=== PATIENT | female | born 1990 | race Caucasian/White ===

== ENCOUNTER 2017-11-23 08:52 | Emergency (ER) | payer OTHER ==
--- NOTE | 2017-11-23 09:40 | UC ---
Complaint Female HPI - HPI Summary HPI Summary: unprotected sexual exposure 3 days ago-- - History Of Current Complaint Chief Complaint: UCSTDScreening Stated Complaint: PERSONAL Time Seen by Provider: 11/23/17 09:45 Hx Obtained From: Patient Hx Last Menstrual Period: 11/05/17 ?: No Onset/Duration: Sudden Onset, Lasting Days - 3 Timing: Constant Severity Currently: None Pain Intensity: 0 Aggravating Factor(s): Nothing Alleviating Factor(s): Nothing Associated Signs And Symptoms: Positive: Negative - Allergies/Home Medications Allergies/Adverse Reactions: Allergies Allergy/AdvReac Type Severity Reaction Status Date / Time No Known Allergies Allergy Verified 11/23/17 09:25 Home Medications: Home Medications Cholecalciferol TAB* [Vitamin D TAB*] 50,000 unit PO WEEKLY 11/23/17 [History Confirmed 11/23/17] LORazepam TAB(*) [Ativan 0.5 MG TAB (*)] 0.5 mg PO BID 11/23/17 [History Confirmed 11/23/17] Sertraline* [Zoloft*] 200 mg PO DAILY 11/23/17 [History Confirmed 11/23/17] Zolpidem TAB* [Ambien TAB*] 10 mg PO BEDTIME PRN 11/23/17 [History Confirmed 02/04] PMH/Surg Hx/FS Hx/Imm Hx Previously Healthy: Yes - Surgical History Surgical History: None - Family History Known Family History: Positive: None - Social History Occupation: Employed Full-time Lives: With Family Alcohol Use: Rare Substance Use Type: None Smoking Status (MU): Light Every Day Tobacco Smoker Type: Cigarettes Amount Used/How Often: 1/2ppd Review of Systems Constitutional: Negative Skin: Negative Eyes: Negative ENT: Negative Respiratory: Negative Cardiovascular: Negative Gastrointestinal: Negative Genitourinary: Negative Motor: Negative Neurovascular: Negative Musculoskeletal: Negative Neurological: Negative Psychological: Negative Is Patient Immunocompromised?: No All Other Systems Reviewed And Are Negative: Yes Physical Exam Triage Information Reviewed: Yes Appearance: Well-Appearing, No Pain Distress, Well-Nourished Vital Signs: Initial Vital Signs Temp 98 F 11/23/17 09:23 Pulse 70 11/23/17 09:23 Resp 16 11/23/17 09:23 BP 133/75 11/23/17 09:23 Pulse Ox 99 11/23/17 09:23 Vital Signs Reviewed: Yes Eye Exam: Normal Eyes: Positive: Conjunctiva Clear ENT Exam: Normal ENT: Positive: Normal ENT inspection, Hearing grossly normal. Negative: Nasal congestion, Trismus, Muffled voice, Hoarse voice, Dental tenderness, Sinus tenderness Dental Exam: Normal Neck exam: Normal Neck: Positive: Supple, Nontender, No Lymphadenopathy Respiratory Exam: Normal Respiratory: Positive: Chest non-tender, No respiratory distress, No accessory muscle use Cardiovascular Exam: Normal Cardiovascular: Positive: RRR, Pulses Normal, Brisk Capillary Refill Musculoskeletal Exam: Normal Musculoskeletal: Positive: Strength Intact, ROM Intact, No Edema Neurological Exam: Normal Neurological: Positive: Alert, Muscle Tone Normal Psychological Exam: Normal Skin Exam: Normal Complaint Female Dx - Course Course Of Treatment: PEP for gonnorhea, chlay. follow with [facility] center or [facility] [employer] MD. avoid sexual contact for 10 days - Differential Dx/Diagnosis Provider Diagnoses: PEP STI Discharge - Discharge Plan Condition: Stable Disposition: HOME Patient Education Materials: Vaginitis (ED) Referrals: [facility] [Outside] - 2 Weeks
[2017-11-23] MEDS ORDERED: cefTRIAXone VIAL(*) 250 MG VIAL IM ONE (09:50)
[2017-11-23] MEDS ORDERED: Azithromycin TAB* 250 MG PO ONE (09:51)
[2017-11-23] MEDS ORDERED: Lidocaine 1% MPF* 2 ML VIAL INJ ONE (09:51)
== END 2017-11-23 10:34 | disposition home or self-care (01) ==
LOC: UCCORT 08:52
DX: Z29.8 Encounter for other specified prophylactic measures (principal); Z72.0 Tobacco use
CPT/HCPCS: 96372; 99202; A9270-GY; G0463; J0696